=== PATIENT | female | born 1970 | race Two or more races ===

== ENCOUNTER 2019-09-04 23:04 | Emergency (ER) | payer OTHER ==
[~2019-09-04] VITALS: Ht 157.5 cm; Wt 59.0 kg
[~2019-09-04 23:04] MED LIST: ACYCLOVIR400 MG ORAL; ARTIFICIAL TEA1 EAC2 OP; MEDROL DOSEPAK4 MG ORAL; SYNTHROID75 MCG ORAL
[2019-09-04 23:20] VITALS: BP 123/80
[2019-09-04] MEDS ORDERED: Ketorolac 30mg Inj IM ONE (23:30)
[2019-09-04] MEDS ORDERED: Methocarbamol 750mg tab ORAL ONE (23:30)
[2019-09-04] MEDS ORDERED: NAPROXEN500 M2 ORAL (23:37)
[2019-09-04] MEDS ORDERED: ROBAXIN-750750 MG PO (23:37)
--- NOTE | 2019-09-04 23:48 | Emergency Room Report ---
History of Present Illness General Chief Complaint: Neck Pain Source: Patient Present Illness HPI Patient is a 49-year-old female who presents to the ER complaining of right- sided neck pain since yesterday. Patient states that she slept for a long time and thinks that she slept wrong and woke up with some right-sided neck pain that radiates up and down her right arm. She denies any focal weakness. She denies any chest pain or shortness of breath. She states that it is hurting the back part of her head from the pain radiation. She denies any blurry vision. She denies any fever or chills. She states that she is still able to use her right upper arm. She denies any paresthesias. She denies any trauma. Patient states that she took ibuprofen for the pain which helped. Allergies: Coded Allergies: No Known Allergies (Unverified , 03/28/19) COVID-19 Screening Contact w/high risk pt: No Recent Travel to affected area: No Experienced COVID-19 symptoms?: No COVID-19 Testing performed CURATOR: No Patient History Last Menstrual Period: n/a Reviewed Nursing Documentation: PMH: Agreed; PSxH: Agreed Review of Systems All Other Systems: negative except mentioned in HPI Physical Exam Vital Signs Date Time Temp Pulse Resp B/P (MAP) Pulse Ox O2 Delivery O2 Flow Rate FiO2 09/04/19 23:13 99.0 88 19 123/80 (94) 96 Sp02 EP Interpretation: reviewed, normal General Appearance: alert, GCS 15, non-toxic, mild distress Head: normocephalic, atraumatic Eyes: bilateral eye normal inspection, bilateral eye PERRL ENT: hearing grossly normal, normal pharynx, no angioedema, normal voice Neck: normal inspection, supple, no meningismus, no bony tend, other - Right lateral neck pain, muscle stiffness painful range of motion Respiratory: chest non-tender, lungs clear, normal breath sounds, speaking full sentences Cardiovascular #1: regular rate, rhythm, no edema Gastrointestinal: normal bowel sounds, non tender, soft, non-distended, no guarding, no rebound Rectal: deferred Genitourinary: no CVA tenderness Musculoskeletal: normal range of motion, no calf tenderness, moves extm spontaneously Neurologic: motor strength/tone normal, bow maker custom III-XII nml as tested, distal neuro normal, oriented x3, sensory intact Psychiatric: no suicidal/homicidal ideation Reflexes: 2+ bicep (R), 2+ bicep (L) Skin: no rash Lymphatic: no adenopathy Medical Decision Making Diagnostic Impression: Primary Impression: Cervical radiculopathy ER Course Patient given Toradol as well as Robaxin. On reevaluation she states that her pain and mobility are improving. After discussing risks and benefits of further diagnostics, treatment plans, as well as indications for and risks of admission, the patient is agreeable to being discharged home. I have explained that their evaluation and treatment in the emergency department today is an important step towards them achieving better health but that their evaluation today is not intended to replace further evaluation and treatment by a physician in their local clinic. I have explained that while the current findings suggest no immediate life threatening emergency they will require further evaluation and treatment by a physician of their choice in their area. They understand that it will be necessary for them to review the final reports of their ED visit with their clinic physician. We have reviewed indications for return to the Emergency Department. I have explained that additional time may need to pass and/or additional testing as an outpatient may be necessary before a definitive diagnosis can be made. They tell me they are willing to follow up as instructed within the timeframe I recommend. They appear to understand what we discussed. Additionally they understand that if they are unable to be seen by an outpatient physician they are welcome, and in fact should, return to the Emergency Department for a repeat evaluation. The patient is stable at time of discharge. Last Vital Signs Date Time Temp Pulse Resp B/P (MAP) Pulse Ox O2 Delivery O2 Flow Rate FiO2 09/04/19 23:20 99.0 88 19 123/80 96 Disposition: HOME, SELF-CARE Condition: Stable Scripts Methocarbamol* (ROBAXIN-750*) 750 Mg Tablet 750 MG PO TID, #21 TAB 0 Refills Prov: Lida Ribeiro M.D. 09/04/19 Naproxen* (NAPROXEN*) 500 Mg Tablet 500 MG ORAL TWICE A DAY, #20 TAB Prov: Lida Ribeiro M.D. 09/04/19 Referrals: [facility] Piedra [facility] Patient Instructions: Cervical Radiculopathy, [id number] Additional Instructions: The patient was provided with discharge instructions, notified to follow-up with a primary care doctor and or specialist in the next 24-48 hours, and to return to the ED if they have worsening of their symptoms. Please note that this report is being documented using [id number] technology. This can lead to erroneous entry secondary to incorrect interpretation by the dictating instrument. Lida Ribeiro M.D. Sep 04, 2019 23:48
[2019-09-05] VITALS: BP 121/80
== END 2019-09-05 00:01 | disposition home or self-care (01) ==
LOC: EMR 23:18
DX: M54.12 Radiculopathy, cervical region (principal)
CPT/HCPCS: 96372; 99283